=== PATIENT | female | born 1970 | race Caucasian/White ===

== ENCOUNTER 2021-08-28 08:02 | Day surgery (SDC) | payer OTHER ==
[~2021-08-28] VITALS: Ht 160 cm; Wt 77.2 kg
[2021-08-28] MEDS ORDERED: LORA2 (08:19)
[2021-08-28] MEDS ORDERED: HYDSUL200 (08:19)
[2021-08-28] MEDS ORDERED: TRAZ150T57 (08:19)
[2021-08-28] MEDS ORDERED: Norco 10-325 T1 EACH PO (08:19)
[2021-08-28] MEDS ORDERED: PRED1 (08:20)
[2021-08-28] MEDS ORDERED: VRAYLAR1.5 MG PO (08:20)
[2021-08-28] MEDS ORDERED: DESV50 PO (08:20)
[2021-08-28] MEDS ORDERED: PRED5 PO (08:20)
[2021-08-28] MEDS ORDERED: CETI5 ×2 (08:20→08:21)
[2021-08-28] MEDS ORDERED: ALBU90OI (08:21)
[2021-08-28] MEDS ORDERED: BENLYSTA120 MG (08:21)
[2021-08-28] MEDS ORDERED: SUMA25 PO (08:21)
[2021-08-28] MEDS ORDERED: OXYM.05NI (08:21)
[2021-08-28] MEDS ORDERED: Premarin 225 MG/5 ML (08:22)
--- NOTE | 2021-08-28 08:52 | NUR ---
08/28/21 0852 Elsa Cormier 1ST IV ATTEMPT IN RH INFILTRATED, ATTEMPTED BY MALKA FIELDS 2ND IV ATTEMPT IN LH SUCCESSFUL, STARTED BY MALKA FIELDS
== END 2021-08-28 10:06 | disposition home or self-care (01) ==
LOC: ORSCSDS 08:02
PROVIDERS: Student in an Organized Health Care Education/Training Program
PROC: 0DBP8ZX Excision of Rectum, Via Natural or Artificial Opening Endoscopic, Diagnostic (ICD-10-PCS; principal; 2021-08-28 09:30)
DX: Z12.11 Encounter for screening for malignant neoplasm of colon (principal); D12.5 Benign neoplasm of sigmoid colon; E66.9 Obesity, unspecified; Z68.30 Body mass index [BMI] 30.0-30.9, adult; Z79.899 Other long term (current) drug therapy
CPT/HCPCS: 88305; J2704; J7120

== ENCOUNTER 2023-01-28 07:19 | Day surgery (SDC) | payer OTHER | END 2023-01-28 08:47 | disposition home or self-care (01) | LOC: ORSCSDS 07:19 | PROC: 0DJD8ZZ Inspection of Lower Intestinal Tract, Via Natural or Artificial Opening Endoscopic (ICD-10-PCS; principal; 2023-01-28) | DX: Z86.010 Personal history of colon polyps (principal); Z83.71 Family history of colonic polyps; K64.8 Other hemorrhoids; K57.30 Diverticulosis of large intestine without perforation or abscess without bleeding; Z87.891 Personal history of nicotine dependence; Z79.899 Other long term (current) drug therapy ==

== ENCOUNTER 2024-11-01 14:57 | Emergency (ER) | payer OTHER, MEDICARE ==
[~2024-11-01] VITALS: Ht 160 cm; Wt 74.8 kg
[~2024-11-01 14:57] MED LIST: ALBU90OI; BENLYSTA120 MG; CETI5; DESV50 PO; HYDSUL200; KETO10 PO; LEVSOD25 PO; LORA2; Norco 10-325 T1 EACH PO; OXYM.05NI; PRED1; PRED5 PO; Premarin 225 MG/5 ML; SUMA25 PO; TRAZ150T57; VRAYLAR1.5 MG PO
[2024-11-01 15:58] LABS: BASOPHILS ABSOLUTE AUTO 0.02 K/mm3 (0.00-0.23); BASOPHILS PERCENT AUTO 0 % (0-2); EOSINOPHILS ABSOLUTE AUTO 0.15 K/mm3 (0.00-0.68); EOSINOPHILS PERCENT AUTO 2 % (0-6); Hematocrit 40.2 % (33.0-51.0); Hemoglobin 13.5 g/dL (11.5-16.0); IMMATURE GRAN ABSOLUTE AUTO 0.01 K/mm3 (0.00-0.10); IMMATURE GRAN PERCENT AUTO 0 % (0-1); LYMPHOCYTES ABSOLUTE AUTO 1.33 K/mm3 (0.84-5.20); LYMPHOCYTES PERCENT AUTO 19 % (21-46); MONOCYTES ABSOLUTE AUTO 0.44 K/mm3 (0.16-1.47); MONOCYTES PERCENT AUTO 6 % (4-13); Mean Corpuscular HGB 30.9 pg (26.0-34.0); Mean Corpuscular HGB Conc 33.6 g/dL (31.5-36.5); Mean Corpuscular Volume 92 fL (80-100); Mean Platelet Volume 10.2 fL (9.1-12.4); NEUTROPHILS ABSOLUTE AUTO 5.03 K/mm3 (1.96-9.15); NEUTROPHILS PERCENT AUTO 72 % (41-73); Platelet Count 248 K/mm3 (150-400); RDW Coefficient Variation 12.8 % (11.7-14.2); RDW Standard Deviation 42.6 fL (35.1-46.3); Red Blood Cell Count 4.37 M/mm3 (3.80-5.20); White Blood Cell Count 6.98 K/mm3 (4.00-11.30)
[2024-11-01 16:44] LABS: Albumin, Blood 3.7 g/dL (3.4-5.0); Albumin/Globulin Ratio 1.1 (0.8-1.8); Bilirubin, Total 0.2 mg/dL (0.1-1.0); Bun/Creatinine Ratio 21.8 (12.0-20.0); Calcium, Blood 9.5 mg/dL (8.5-10.1); Creatinine, Blood 1.19 mg/dL (0.40-1.00); Globulin, Blood 3.3 g/dL (2.2-4.0); Potassium, Blood 3.9 mmol/L (3.5-5.5)
[2024-11-01 18:30] VITALS: BP 139/90
== END 2024-11-01 18:46 | disposition home or self-care (01) ==
LOC: ER 14:57
PROVIDERS: Emergency Medicine
DX: R07.89 Other chest pain (principal); G43.909 Migraine, unspecified, not intractable, without status migrainosus; E03.9 Hypothyroidism, unspecified; M32.9 Systemic lupus erythematosus, unspecified; Z88.0 Allergy status to penicillin; Z88.1 Allergy status to other antibiotic agents; Z88.5 Allergy status to narcotic agent; Z88.8 Allergy status to other drugs, medicaments and biological substances; Z79.890 Hormone replacement therapy; Z79.52 Long term (current) use of systemic steroids; Z79.899 Other long term (current) drug therapy
CPT/HCPCS: 80053; 84484; 85025; 85379; 93005; 93010; 99285-25